=== PATIENT | male | born 1955 | race Two or more races ===

== ENCOUNTER → 2018-01-27 | Outpatient (CLI) | payer MEDICARE ==
[~2018-01-27] MED LIST: ADJUSTABLE COMM1 MIS; AMOX875T71 PO; ASPI325T33 PO; HYDR-3516 PO; LISI10TA3 PO; LORT5TAB PO; MULT-65 PO; SELE200T17 PO; TAMS0.4C4; TRAM50 PO; WALKER WHEELS/F1 MIS
[2018-01-27 09:03] LABS: BILIRUBIN, URINE NEG (NEG); BLOOD, URINE NEG (NEG); GLUCOSE,URINE NEG (NEG); KETONE, URINE NEG (NEG); NITRITE,URINE NEG (NEG); PH, URINE 5.5 (5.0-8.5); URINE COLOR YELLOW (YELLW/STRAW); URINE LEUKOCYTE ESTERASE NEG (NEG)
[2018-01-27 09:05] LABS: BASOPHIL % 0.4 % (0.0-2.0); EOSINOPHIL # 0.3 TH/MM3 (0-0.4); EOSINOPHIL % 3.6 % (0.0-4.0); HEMATOCRIT 44.1 % (39.0-51.0); HEMOGLOBIN 15.6 GM/DL (13.0-17.0); LYMPHOCYTE # 2.5 TH/MM3 (1.0-4.8); MEAN CELL VOLUME 85.6 FL (80.0-100.0); MEAN CORPUSCULAR HEMOGLOBIN 30.3 PG (27.0-34.0); MEAN CORPUSCULAR HGB CONC 35.3 % (32.0-36.0); MEAN PLATELET VOLUME 9.5 FL (7.0-11.0); MONO % 8.2 % (0.0-8.0); MONOCYTE # 0.6 TH/MM3 (0-0.9); NEUT % 53.8 % (16.0-70.0); PLATELET COUNT 214 TH/MM3 (150-450); RED BLOOD COUNT 5.15 MIL/MM3 (4.50-5.90); RED CELL DISTRIBUTION WIDTH 13.1 % (11.6-17.2); WHITE BLOOD COUNT 7.4 TH/MM3 (4.0-11.0)
[2018-01-27 09:10] LABS: MUCUS URINE FEW /lpf (OCC)
[2018-01-27 09:22] LABS: ALBUMIN 4.2 GM/DL (3.4-5.0); BICARBONATE 27.5 MEQ/L (21.0-32.0); BLOOD UREA NITROGEN 29 MG/DL (7-18); CALCIUM 9.2 MG/DL (8.5-10.1); CHLORIDE 107 MEQ/L (98-107); CREATININE 1.08 MG/DL (0.60-1.30); GLOMERULAR FILTRATION RATE 70 ML/MIN (>89); GLUCOSE,FASTING 117 MG/DL (74-99); SODIUM (NA) 142 MEQ/L (136-145)
[2018-01-27 09:24] LABS: ALT (GPT) 16 U/L (12-78); AST (GOT) 18 U/L (15-37)
[2018-01-27 09:26] LABS: ALKALINE PHOSPHATASE 126 U/L (45-117); TOTAL BILIRUBIN ADULT 0.5 MG/DL (0.2-1.0); TOTAL PROTEIN 7.3 GM/DL (6.4-8.2)
--- NOTE | 2018-01-27 10:01 | RADRPT ---
EXAM DATE/TIME: 01/27/2018 08:50 [facility] COMPARISON: No previous studies available for comparison. INDICATIONS : Evaluate for communicable diseases, pneumothorax, pneumonia. MEDICAL HISTORY : Osteoarthritis. SURGICAL HISTORY : None. ENCOUNTER: Initial ACUITY: 1 day PAIN SCORE: 0/10 LOCATION: Bilateral chest FINDINGS: PA and lateral views of the chest demonstrate the lungs to be symmetrically aerated without evidence of mass, infiltrate or effusion. Granuloma laterally right and left lungs. The cardiomediastinal con tours are unremarkable. Osseous structures are intact. CONCLUSION: Negative for an acute process. Jose Gunter MD FACR on January 27, 2018 at 9:58 Board Certified Radiologist. This report was verified electronically.
--- NOTE | 2018-01-27 21:39 | EKG ---
Date Performed: 01/27/2018 Time Performed: 08:13:17 PTAGE: 62 years EKG: SINUS BRADYCARDIA NONSPECIFIC T-WAVE ABNORMALITY BORDERLINE ECG Since the PREVIOUS TRACING , no significant change noted PREVIOUS TRACIN12/23/2010 09.24 DOCTOR: Nehal Acosta Interpretating Date/Time 01/27/2018 16:57:00
== END ==
LOC: CPRE 06:48
PROVIDERS: ATTEND Orthopaedic Surgery
DX: Z01.810 Encounter for preprocedural cardiovascular examination (principal); Z01.811 Encounter for preprocedural respiratory examination; Z01.812 Encounter for preprocedural laboratory examination; M16.12 Unilateral primary osteoarthritis, left hip; R94.31 Abnormal electrocardiogram [ECG] [EKG]
CPT/HCPCS: 36415; 71046; 80053; 81001; 85025; 93005

== ENCOUNTER 2018-02-01 05:16 | Inpatient (IN) | payer MEDICARE, OTHER ==
[~2018-02-01] VITALS: Ht 167.6 cm; Wt 80.0 kg
[~2018-02-01 05:16] MED LIST changes: -ADJUSTABLE COMM1 MIS; -AMOX875T71 PO; -ASPI325T33 PO; -HYDR-3516 PO; -LORT5TAB PO; -TRAM50 PO; -WALKER WHEELS/F1 MIS
[2018-02-01] MEDS ORDERED: VANCOMYCIN 1250 MG/NS 250 ML (for 70-84 kg) IV SCH ×2 (06:00)
[2018-02-01] MEDS ORDERED: CHLORHEXIDINE GLUCONATE 2 % 1 PACK (2 CLOTHS) TOPICAL PRN (06:00)
[2018-02-01] MEDS ORDERED: METOPROLOL TARTRATE 25 MG TAB PO PRN (06:00)
[2018-02-01] MEDS ORDERED: LACTATED RINGER'S 1000 ML IV PRN (06:00)
[2018-02-01] MEDS ORDERED: POVIDONE IODINE 5% (ANTISEPSIS KIT) 4 APPLICATIONS EACH NARE PRN (06:00)
[2018-02-01] MEDS ORDERED: SODIUM CHLORID 0.9% 500 ML IV PRN (06:00)
[2018-02-01] MEDS ORDERED: ceFAZolin 2 GM PREMIX 50 ML IV SCH ×2 (06:00→14:00)
[2018-02-01] MEDS ORDERED: ACETAMINOPHEN 1000 MG/100 ML 100 ML IV ONE (06:02)
[2018-02-01] MEDS ORDERED: GENTAMICIN SULFATE 80 MG/2 ML VIAL ONE (06:20)
--- NOTE | 2018-02-01 06:34 | MH ---
cc: Corbin Sheth MD DATE OF ADMISSION: 02/01/2018 PREOPERATIVE DIAGNOSIS: Severe osteoarthritis, left hip. PROPOSED SURGERY: Total hip replacement arthroplasty, left hip. HISTORY OF PRESENT ILLNESS: This patient has a problem for more than 2 years with the left hip with pain on and off, but now it is constant, severe and unable to walk without assistive device and is starting to have shortening of the left leg. He was referred to the [facility] for the surgery of total hip replacement. He has been treated with NSAIDs. He has 2 cortisone injections in the hip ordered by primary care. They gave him a few months of relief and now nothing is helping his pain. PERSONAL SOCIAL HISTORY: He is a nonsmoker and does not drink. 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 PAST MEDICAL HISTORY: High blood pressure and prostate problems. PAST SURGICAL HISTORY: Neck fusion and left foot. CURRENT MEDICATIONS: 1. Lisinopril. 2. Tamsulosin. ALLERGIES: NONE. PHYSICAL EXAMINATION: Reveals a male, 5 feet 6 inches tall, 175 pounds. He is walking with a profound limp on the left leg. He has severe pain on any range of motion of the left hip. He has some flexion contracture about 15-20 degrees. He can flex further to 90 degrees. He has about 1 cm shortening of the left lower extremity. Pedal pulses are palpable. The knee moves left foot well. GENERAL: Unremarkable. HEENT: Head is normocephalic. Pupils reactive to light. Face Symmetrical. HEART: Regular rhythm, no murmurs. LUNGS: Clear to auscultation. ABDOMEN: Soft and supple. IMAGING: X-rays revealed some destruction of the femoral head and some loss of bone superior portion of the acetabulum. There is End-stage osteoarthritis of the left hip. CT scan reveals that there is satisfactory bony confines for putting primary hip replacement components. The patient came in asking for an anterior hip replacement, but I had a long talk with him about the pros and cons of anterior hip replacement versus standard lateral approach or posterior hip replacement and the pros and cons and advantages and disadvantages. Because of the bone loss in the acetabulum and the need to properly deepen it and set the cup, I feel it is best that we do a posterior approach which is more conducive to dealing with any particular problems or complications. He has agreed to the procedure. Informed consent has been obtained. No guarantees made. A detailed informed consent has been documented on the office chart. We talked to him about infection, dislocation, fracture, limb length discrepancy, thromboembolic complications and post-hospital and postop care, etc. MD MARIANA Delong/EDWARD , 06:19 AM , 06:32 AM
[2018-02-01] MEDS ORDERED: BUPIVACAINE LIPOSO PF 1.3% INJ 20 ML in SODIUM CHLORIDE 0.9% INJ 60 ML P-ARTICULR SCH (07:30)
[2018-02-01] MEDS ORDERED: TRANEXAMIC ACID IV SCH ×2 (07:30→10:30)
[2018-02-01] MEDS ORDERED: SODIUM CHLORIDE 0.9% IV SCH ×2 (07:30→10:30)
[2018-02-01] MEDS ORDERED: ONDANSETRON HCL 4 MG/2 ML VIAL IVP PRN (10:30)
[2018-02-01] MEDS ORDERED: diphenhydrAMINE HCL 50 MG/ML VIAL IV PUSH PRN (10:30)
[2018-02-01] MEDS ORDERED: TEMAZEPAM 15 MG CAP PO PRN (10:30)
[2018-02-01] MEDS ORDERED: NALOXONE HCL 0.4 MG/ML AMP IV PUSH PRN (10:30)
[2018-02-01] MEDS ORDERED: TRANEXAMIC ACID INJ 0 MG in SODIUM CHLORIDE 0.9% INJ 100 ML IV SCH (10:30)
[2018-02-01] MEDS ORDERED: MORPHINE SULFATE 30 MG/30 ML PCA IV SCH (10:30)
[2018-02-01] MEDS ORDERED: Post-op Orders (for Pharmacy) XX ONE (10:30)
[2018-02-01] MEDS ORDERED: ASPI325T33 PO (10:31)
[2018-02-01] MEDS ORDERED: TRAM50 PO (10:31)
[2018-02-01] MEDS ORDERED: HYDR-3516 PO (10:31)
--- NOTE | 2018-02-01 10:34 | HHI.FF ---
Face to Face Verification Diagnosis: (1) S/P total hip arthroplasty Physical Therapy Gait training, Transfer training, bed to chair Hip: Total hip, Protocol: Left Right LE Weight Bearing: WB as tolerated Left LE Weight Bearing: WB as tolerated Nursing Nursing: Other (MONITOR DRESSING) Dressing Changes: Other (rEMOVE provena wed 02/08, apply primapore, change as needed) I have seen patient Tong Patterson on 02/01/18. My clinical findings support the need for the requested home health care services because: Limited ability to care for self I certify that my clinical findings support that this patient is homebound because: Unable to use public transportation Corbin Sheth MD February 01, 2018 10:34
[2018-02-01] MEDS ORDERED: MIDAZOLAM HCL 2 MG/2 ML VIAL ONE (10:35)
[2018-02-01] MEDS ORDERED: WALKER WHEELS/F1 MIS (10:36)
[2018-02-01] MEDS ORDERED: MORPHINE SULFATE 4 MG/ML INJ ONE (10:36)
[2018-02-01] MEDS ORDERED: ADJUSTABLE COMM1 MIS (10:36)
[2018-02-01] MEDS ORDERED: *morphine SULFATE 8 MG/ML PERIprocedure ONLY ONE (10:43)
--- NOTE | 2018-02-01 10:43 | MP ---
cc: Corbin Sheth MD DATE OF OPERATION: 02/01/2018 DATE OF : 1955 DATE OF SURGERY: 02/01/2018 PREOPERATIVE DIAGNOSES: 1. End-stage osteoarthritis, left hip. 2. Superior subluxation left femoral head. POSTOPERATIVE DIAGNOSES: 1. End-stage osteoarthritis, left hip. 2. Superior subluxation left femoral head. OPERATIVE PROCEDURE: Total hip replacement arthroplasty, left hip using a Suzanna Biomet components. COMPONENTS: Stem: 14 mm Taperloc with a lateral offset. Head: 36 mm ceramic with standard neck length. Cup: A 56 mm Suzanna cup with 2 dome screws. Polyethylene 36 mm high wall liner. LEVEL OF DIFFICULTY: Moderate because of the subluxation of the femoral head and bone loss from the superior lateral aspect of the acetabulum, bone cysts in the acetabulum as well as tight exposure because of the patient's athletic status. SURGEON: Dr. Sheth. ANESTHESIA: General. PROCEDURE: After induction of general anesthesia, the patient was placed in the left lateral position, supported with Biomet hip positioners. Strict lateral position was ascertained. Axillary roll was placed. The well leg and upper extremities were properly protected and positioned. The left hip and left lower extremity were thoroughly prepped with alcohol and ChloraPrep and draped in routine fashion. A lateral incision about 6 inches long was made, centered on the greater trochanter, deepened through subcutaneous tissue and fascia. The patient had a fairly large gluteus medius in close proximity and adherent to the fascia, making dissection, a little bit difficult, but gluteus medius was protected throughout. The bursa was dissected, self-retaining retractors introduced. The hip was internally rotated, followed by identification of the piriformis and stay sutures were placed through the piriformis and capsule and the capsule was incised and inverted in L-shaped fashion with the vertical limb of the L along the intertrochanteric line. The gluteus minimus was dissected from the superior lateral aspect of the acetabulum and a Steinmann pin placed here for measurement of length and offset through a predetermined mikhail on the greater trochanter. Once this was done, the hip was dislocated. Time had to be taken to osteotomize the femoral neck because of the tight confines as well as the large femoral head and a short neck. A femoral neck osteotomy was carried out. Head was removed. There was considerable degree of soft tissue excision which had to be carried out from the acetabular labrum and some of the anterior and inferior capsule and the posterior labrum to get good exposure. Once exposure was obtained, the confines of the acetabulum were checked, the thickness of the inner wall was checked, followed by reaming with a 50 mm reamer to start with, deepening the acetabulum as well as bleeding bone superiorly. The superior and inferior confines certainly are larger then anterior to posterior dimensions and a middle row was established and a last reamer used was a 56 mm, which was grabbed very well by the anterior and posterior vitale. Bone graft from femoral head was packed into the curetted cysts in the acetabulum. Trial was used, followed by a 56 mm Suzanna cup impacted in 45 degrees of abduction, 20 degrees anteversion. A 30 mm and 25 mm screws were used for securing the cup additionally. A high wall polyethylene liner impacted in place with the buildup superior - posterior. Femur was prepared following routine technique using a ComplyMD cutter lateralizer and use of the Taperloc broaches to 14 mm broach. Trial reduction was carried out with a -3 head and stability was good, but we need to regain some length because we were only lengthening him 1 mm but we were losing about 8 mm of offset. Therefore, we decided that we would use a longer neck length and a lateral offset. Trial implants were removed, followed by impaction of a 14 mm Taperloc stem in 20 degrees of anteversion with the lateral offset stem. A standard 36 mm ceramic head was placed over it and final reduction was carried out, getting good position, alignment and stability. Limb lengths appeared satisfactory. We had lost some offset, but we regained some length. We lengthened him about 5 mm and lost about 5 mm of offset. The wound was irrigated with saline solution, followed by reapproximation of short external rotators and capsule in as anatomical situation as possible, getting good repair with #2 FiberWire through drill holes to the greater trochanter. Slurried bone graft from femoral head and reamings packed under soft tissue over the bare area of the cup superior laterally.The superior incision of the capsule was also repaired. The gluteus minimus was reattached to the soft tissue structures of the short rotators. The fascia was closed with #2 Vicryl and #2 Quill, subcutaneous tissue with 2-0 Vicryl and the skin with 3-0 subcuticular sutures followed by application of a Prevena vacuum suction dressing. The patient was transferred to the recovery room in satisfactory condition with abduction pillow on. The patient tolerated the procedure well. TRANSFUSIONS AND COMPLICATIONS: None. POSTOPERATIVE CONDITION: Satisfactory. PROGNOSIS: Good. ESTIMATED BLOOD LOSS: 400 mL. MD MARIANA Delong/AGUSTIN , 10:16 AM , 10:42 AM DERIK
[2018-02-01] MEDS: SODIUM CHLOR 0.9% 1000 ML INJ 1,000 ML IV SCH ×2 (11:00→20:00)
--- NOTE | 2018-02-01 11:35 | RADRPT ---
EXAM DATE/TIME: 02/01/2018 10:55 [facility] COMPARISON: No previous studies available for comparison. INDICATIONS : Post op left hip surgery. MEDICAL HISTORY : Osteoarthritis. SURGICAL HISTORY : None. ENCOUNTER: Initial ACUITY: 1 day PAIN SCORE: Non-responsive. LOCATION: Left hip. FINDINGS: AP and lateral views demonstrates a total hip arthroplasty in place. Arthroplasty components are well positioned and in anatomic alignment. No significant bony fracture. CONCLUSION: 1. Status post left hip arthroplasty, as above. Jeancarlos Ramsey MD on February 01, 2018 at 11:32 Board Certified Radiologist. This report was verified electronically.
[2018-02-01] MEDS ORDERED: ONDANSETRON HCL 4 MG/2 ML VIAL IV PUSH ONE (12:00)
[2018-02-01] MEDS ORDERED: ePHEDrine/NS 25 MG/5 ML SYRINGE IV ONE (12:00)
[2018-02-01] MEDS ORDERED: NEOSTIGMINE 5 MG/5 ML SYRINGE IV PUSH ONE (12:00)
[2018-02-01] MEDS ORDERED: ONDANSETRON HCL 4 MG/2 ML VIAL IV ONE (12:00)
[2018-02-01] MEDS ORDERED: GLYCOPYRROLATE 1 MG/5 ML SYRINGE IV PUSH ONE (12:00)
[2018-02-01] MEDS ORDERED: PROPOFOL 200 MG/20 ML AMP IV ONE (12:00)
[2018-02-01] MEDS ORDERED: ROCURONIUM INJ 50 MG/5 ML SYRINGE IV PUSH ONE (12:00)
[2018-02-01] MEDS ORDERED: LIDOCAINE HCL 1% PF 5 ML SYRINGE OTHER ONE (12:00)
[2018-02-01] MEDS ORDERED: DEXAMETHASONE SOD PHOS 4 MG/ML VIAL IV ONE (12:00)
[2018-02-01] MEDS ORDERED: SODIUM CHLORIDE 0.9% 20 ML VIAL IV ONE (12:00)
[2018-02-01] MEDS ORDERED: PHENYLEPH/NS 1000 MCG/10 ML SYR IV ONE (12:00)
[2018-02-01] MEDS ORDERED: DO NOT ADM ANY ANTICOAGULANT DRUGS PRN (12:45)
[2018-02-01] MEDS: ACETAMINOPHEN 1000 MG/100 ML VIAL IV SCH ×2 (12:55→20:21)
[2018-02-01] MEDS ORDERED: ceFAZolin 2 GM PREMIX 50 ML ONE (13:21)
[2018-02-01] MEDS: PCA - TOTAL MG MORPHINE DELIVERED PER SHIFT SCH ×2 (14:00→22:00)
[2018-02-01] MEDS: ceFAZolin 2 GM in NS 100 ML IV SCH ×2 (14:00→22:08)
[2018-02-01 16:36] VITALS: BP 137/68; PULSE 62; RESP 18; TEMP 97.6; O2SAT 98
[2018-02-01] MEDS: ACETAMINOPHEN/HYDROcodone 325 MG/5 MG TAB PO PRN ×2 (18:22→23:43)
[2018-02-01 20:00] VITALS: BP 131/64; PULSE 62; RESP 21; TEMP 97.9; O2SAT 97
[2018-02-01] MEDS: TAMSULOSIN HCL 0.4 MG CAP PO SCH ×2 (20:20→23:42)
[2018-02-01] MEDS: KETOROLAC TROMETHAMINE 30 MG/ML (IVP) VIAL IVP SCH (20:22)
[2018-02-01] MEDS ORDERED: VANCOMYCIN INJ 1,250 MG in SODIUM CHLOR 0.9% 250 ML INJ 250 ML IV SCH (23:00)
[2018-02-01] MEDS ORDERED: VANCOMYCIN INJ 1.25 GM in SODIUM CHLOR 0.9% 250 ML INJ 250 ML IV SCH (23:00)
[2018-02-02] VITALS: BP 151/71; PULSE 60; RESP 12; TEMP 98.1; O2SAT 100
[2018-02-02] MEDS: TAMSULOSIN HCL 0.4 MG CAP PO SCH ×2 (01:17→20:59)
[2018-02-02] MEDS: ceFAZolin 2 GM in NS 100 ML IV SCH (02:37)
[2018-02-02 04:00] VITALS: BP 121/57; PULSE 60; RESP 19; TEMP 97.1; O2SAT 98
[2018-02-02] MEDS: SODIUM CHLOR 0.9% 1000 ML INJ 1,000 ML IV SCH ×3 (04:00→20:00)
[2018-02-02 05:12] LABS: HEMATOCRIT 34.1 % (39.0-51.0); HEMOGLOBIN 11.7 GM/DL (13.0-17.0)
[2018-02-02] MEDS: KETOROLAC TROMETHAMINE 30 MG/ML (IVP) VIAL IVP SCH ×3 (05:22→20:59)
[2018-02-02 05:36] LABS: BICARBONATE 26.3 MEQ/L (21.0-32.0); CALCIUM 7.8 MG/DL (8.5-10.1); CREATININE 1.23 MG/DL (0.60-1.30)
[2018-02-02] MEDS: PCA - TOTAL MG MORPHINE DELIVERED PER SHIFT SCH (05:46)
--- NOTE | 2018-02-02 07:36 | PD.ORT.PN ---
Subjective Post Op Day #: 1 Pain Scale: not much Subjective Remarks Doing well Distance Walked OOB and BRP already yesterday Objective Vitals Last 72 hours Impressions Hip X-Ray 02/01/18 0000 Signed Impressions: Service Date/Time: Thursday, February 01, 2018 10:55 - CONCLUSION: 1. Status post left hip arthroplasty, as above. Jeancarlos Ramsey MD Vital Signs Date Time Temp Pulse Resp B/P (MAP) Pulse Ox O2 Delivery O2 Flow Rate FiO2 02/02/18 04:00 97.1 60 19 121/57 (78) 98 02/02/18 00:00 98.1 60 12 151/71 (97) 100 02/01/18 20:00 97.9 62 21 131/64 (86) 97 02/01/18 16:36 97.6 62 18 137/68 (91) 98 02/01/18 16:15 71 16 98 Nasal Cannula 2 02/01/18 16:00 97.6 70 16 123/60 (81) 98 Nasal Cannula 2 02/01/18 15:00 71 16 125/63 (83) 98 Nasal Cannula 2 02/01/18 14:51 16 02/01/18 14:00 70 16 128/65 (86) 97 Nasal Cannula 2 02/01/18 13:21 15 02/01/18 13:16 15 02/01/18 13:00 69 16 130/68 (88) 97 Nasal Cannula 2 02/01/18 12:00 64 16 138/70 (92) 97 Nasal Cannula 2 02/01/18 11:45 65 16 132/71 (91) 96 Nasal Cannula 2 02/01/18 11:30 97.6 68 15 135/69 (91) 95 Nasal Cannula 2 02/01/18 11:15 65 15 130/67 (88) 94 Nasal Cannula 2 02/01/18 11:00 67 15 128/69 (88) 95 Nasal Cannula 2 02/01/18 10:48 16 02/01/18 10:45 66 15 127/68 (87) 95 Nasal Cannula 2 02/01/18 10:30 69 15 128/66 (86) 95 Nasal Cannula 2 02/01/18 10:25 97.3 67 16 123/68 (86) 100 Nasal Cannula 3 I/O 5/9/02/01/18 02/01/18 02/02/18 02/02/18 02/02/18 07:00 15:00 23:00 07:00 15:00 23:00 Intake Total 2007.96 ml 990 ml 2109.5 ml Output Total 4250 ml 200 ml Balance -2242.04 ml 990 ml 1909.5 ml Intake Oral 240 ml 1000 ml IV Total 2007.96 ml 750 ml 1109.5 ml Output Urine Total 850 ml 200 ml Estimated Blood Loss 400 ml Other 3000 ml Bladder Scan Volume Amount 548 ml # Voids 0 Result Diagram: 02/02/18 0349 02/02/18348 Objective Remarks A,A, and O Comfortable Moves toes well Dressings ( Provena) intact and working, discussed with patient Has had trouble voiding but adamantly refuses catheter, according to head nurse , inspite of 700 residual. i Disscussed, and he is confident he can do without catheter, indeed has approx 300 ml in urinal now. Assessment & Plan Ortho Post Op Day #: 1 Problem List: Assessment and Plan DC plan discussed Corbin Sheth MD February 02, 2018 07:36
[2018-02-02] MEDS: ACETAMINOPHEN/HYDROcodone 325 MG/5 MG TAB PO PRN ×2 (07:54→17:40)
[2018-02-02] MEDS: LISINOPRIL 10 MG TAB PO SCH (07:54)
[2018-02-02] MEDS: MULTIVITAMIN TAB PO SCH (07:54)
[2018-02-02] MEDS: ASPIRIN EC 325 MG TABEC PO SCH (07:54)
[2018-02-02 08:00] VITALS: BP 136/70; PULSE 67; RESP 18; TEMP 97.6; O2SAT 98
[2018-02-02] MEDS: ACETAMINOPHEN 1000 MG/100 ML VIAL IV SCH ×2 (08:59→20:59)
[2018-02-02 12:00] VITALS: BP 140/75; PULSE 66; RESP 18; TEMP 98; O2SAT 99
[2018-02-02 16:00] VITALS: BP 130/65; PULSE 59; RESP 18; TEMP 97.8; O2SAT 99
[2018-02-02 20:00] VITALS: BP 160/78; PULSE 65; RESP 20; TEMP 97.9; O2SAT 98
[2018-02-02] MEDS: DOCUSATE SODIUM 100 MG CAP PO SCH (20:59)
[2018-02-02] MEDS: traMADol HCL 50 MG TAB PO PRN (20:59)
[2018-02-03 00:02] VITALS: BP 128/58; PULSE 61; RESP 18; TEMP 97.7; O2SAT 98
[2018-02-03] MEDS: SODIUM CHLOR 0.9% 1000 ML INJ 1,000 ML IV SCH ×3 (04:00→20:00)
[2018-02-03] MEDS: KETOROLAC TROMETHAMINE 30 MG/ML (IVP) VIAL IVP SCH ×2 (06:22→12:50)
[2018-02-03] MEDS: ACETAMINOPHEN/HYDROcodone 325 MG/5 MG TAB PO PRN ×3 (06:23→19:19)
[2018-02-03] MEDS: TAMSULOSIN HCL 0.4 MG CAP PO SCH ×2 (07:41→20:49)
[2018-02-03] MEDS: MULTIVITAMIN TAB PO SCH (07:41)
[2018-02-03] MEDS: LISINOPRIL 10 MG TAB PO SCH (07:41)
[2018-02-03] MEDS: ASPIRIN EC 325 MG TABEC PO SCH ×2 (07:41→20:49)
[2018-02-03] MEDS: traMADol HCL 50 MG TAB PO PRN ×2 (07:42→20:49)
[2018-02-03] MEDS: DOCUSATE SODIUM 100 MG CAP PO SCH ×2 (07:42→20:49)
[2018-02-03] MEDS: ACETAMINOPHEN 1000 MG/100 ML VIAL IV SCH ×2 (07:48→20:49)
[2018-02-03 08:00] VITALS: BP 158/85; PULSE 66; RESP 15; TEMP 97.2; O2SAT 97
[2018-02-03] MEDS ORDERED: LACTULOSE SYRUP 20 GM/30 ML CUP PO PRN (10:30)
[2018-02-03] MEDS ORDERED: MAGNESIUM HYDROXIDE SUSP 30 ML CUP PO PRN ×2 (10:30→11:15)
--- NOTE | 2018-02-03 11:12 | PD.ORT.PN ---
Subjective Post Op Day #: 2 Subjective Remarks Doing well, would like to snf, no help at home, ,lives alone Objective Vitals Vital Signs Date Time Temp Pulse Resp B/P (MAP) Pulse Ox O2 Delivery O2 Flow Rate FiO2 02/03/18 08:47 18 02/03/18 08:47 18 02/03/18 08:00 97.2 66 15 158/85 (109) 97 02/03/18 07:23 18 02/03/18 07:23 18 02/03/18 00:02 97.7 61 18 128/58 (81) 98 02/02/18 20:00 97.9 65 20 160/78 (105) 98 02/02/18 16:00 97.8 59 18 130/65 (86) 99 02/02/18 12:00 98.0 66 18 140/75 (96) 99 I/O 02/02/18 02/02/18 02/02/18 02/03/18 02/03/18 02/03/18 07:00 15:00 23:00 07:00 15:00 23:00 Intake Total 2109.5 ml 600 ml 1700 ml 600 ml Output Total 200 ml 700 ml 600 ml 450 ml Balance 1909.5 ml -100 ml 1100 ml 150 ml Intake Oral 1000 ml 600 ml 1700 ml 600 ml IV Total 1109.5 ml Output Urine Total 200 ml 700 ml 600 ml 450 ml Bladder Scan Volume Amount 548 ml # Voids 5 2 # Bowel Movements 0 Result Diagram: 02/02/18 0349 02/02/18 0349 Objective Remarks sleeping, butA,A, and O on waking Comfortable Moves toes well Dressings ( Provena) intact and working, discussed with patient Assessment & Plan Ortho Post Op Day #: 2 Problem List: Assessment and Plan DC plan discussed To SNF tomorrow Corbin Sheth MD February 03, 2018 11:12
[2018-02-03 12:00] VITALS: BP 125/66; PULSE 67; RESP 16; TEMP 97.7; O2SAT 97
[2018-02-03 16:00] VITALS: BP 125/63; PULSE 65; RESP 16; TEMP 97.9; O2SAT 98
[2018-02-03 20:00] VITALS: BP 132/61; PULSE 71; RESP 18; TEMP 98.3; O2SAT 99
[2018-02-04 00:01] VITALS: BP 128/76; PULSE 69; RESP 18; TEMP 97.9; O2SAT 99
[2018-02-04] MEDS: SODIUM CHLOR 0.9% 1000 ML INJ 1,000 ML IV SCH (04:00)
[2018-02-04] MEDS: ACETAMINOPHEN/HYDROcodone 325 MG/5 MG TAB PO PRN ×2 (04:54→11:17)
[2018-02-04 08:00] VITALS: BP 144/76; PULSE 69; RESP 18; TEMP 97.6; O2SAT 99
[2018-02-04] MEDS: TAMSULOSIN HCL 0.4 MG CAP PO SCH (10:13)
[2018-02-04] MEDS: DOCUSATE SODIUM 100 MG CAP PO SCH (10:13)
[2018-02-04] MEDS: LISINOPRIL 10 MG TAB PO SCH (10:13)
[2018-02-04] MEDS: ASPIRIN EC 325 MG TABEC PO SCH (10:13)
[2018-02-04] MEDS: MULTIVITAMIN TAB PO SCH (10:13)
--- NOTE | 2018-02-04 10:36 | PD.ORT.PN ---
Subjective Post Op Day #: 3 Pain Scale: ok Subjective Remarks Doing well, would like to snf, no help at home, ,lives alone, was up before, awaiting PT Objective Vitals Vital Signs Date Time Temp Pulse Resp B/P (MAP) Pulse Ox O2 Delivery O2 Flow Rate FiO2 02/04/18 08:00 97.6 69 18 144/76 (98) 99 02/04/18 00:01 97.9 69 18 128/76 (93) 99 02/03/18 20:00 98.3 71 18 132/61 (84) 99 02/03/18 16:00 97.9 65 16 125/63 (83) 98 02/03/18 13:57 18 02/03/18 12:53 18 02/03/18 12:00 97.7 67 16 125/66 (85) 97 I/O 02/03/18 02/03/18 02/03/18 02/04/18 02/04/18 02/04/18 07:00 15:00 23:00 07:00 15:00 23:00 Intake Total 600 ml 480 ml 460 ml Output Total 450 ml 350 ml Balance 150 ml 480 ml 110 ml Intake Oral 600 ml 480 ml 460 ml Output Urine Total 450 ml 350 ml # Voids 2 4 1 # Bowel Movements 0 1 Result Diagram: 02/02/18 0349 02/02/18 0349 Objective Remarks In bed, A,A, and O Left hip has provena dressing, no significant swelling/ ecchhymosis Moves toes well advised importance of Being OOB and ambulatory, not in bed all the time DC meds discussed Assessment & Plan Ortho Post Op Day #: 3 Problem List: Assessment and Plan DC to SNF today See me tuesdayFebruary 13 Corbin Sheth MD February 04, 2018 10:36
--- NOTE | 2018-02-04 22:16 | MD ---
cc: Corbin Sheth MD, Srinivasa MD DATE OF DISCHARGE: 02/04/2018 ADMITTING DIAGNOSIS: End-stage osteoarthritis of the left hip. DISCHARGE DIAGNOSIS: End-stage osteoarthritis of the left hip. ADDITIONAL DIAGNOSIS: 1. Benign prostatic hypertrophy. 2. Hypertension. HISTORY OF PRESENT ILLNESS: Consists of 2-year history of increasing pain in the left hip, treated nonoperatively including NSAIDs and intra-articular steroids. It has come to the point where he has further worsening of the x-rays, there is shortening and deformity and the inability to walk without a severe limp. After a preoperative workup, the patient was brought to the hospital where he had the surgery performed uneventfully. Postop course uneventful. He has a Provena dressing on his hip, which will stay on until Tuesday. Postoperative labs were satisfactory. Postoperative x-ray satisfactory. The patient has had physical therapy and occupational therapy. Dislocation precautions have been advised. He elected to go to a senior living facility instead of home health care because of lack of availability of any help at home. DISCHARGE MEDICATIONS: Basically continue at home medications preop as well as hydrocodone 5/325 2 q.i.d. p.r.n. for pain pain level 7-10 and Tramadol 100 mg t.i.d. p.r.n. for pain for pain level 1-6. Appropriate orders for care and followup have been written. MD MARIANA Delong/ , 10:38 AM , 10:15 PM
== END 2018-02-04 12:39 | DRG 470 ==
LOC: HSDI 05:16 → N06A 16:34
PROVIDERS: ADMIT Orthopaedic Surgery; ATTEND Orthopaedic Surgery
PROC: 0QU707Z Supplement Left Upper Femur with Autologous Tissue Substitute, Open Approach (ICD-10-PCS; 2018-02-01)
PROC: 0SRB04A Replacement of Left Hip Joint with Ceramic on Polyethylene Synthetic Substitute, Uncemented, Open Approach (ICD-10-PCS; principal; 2018-02-01 07:08)
DX: M16.12 Unilateral primary osteoarthritis, left hip (principal); S73.002A Unspecified subluxation of left hip, initial encounter; I10 Essential (primary) hypertension; N40.0 Benign prostatic hyperplasia without lower urinary tract symptoms
CPT/HCPCS: 73502; 80048; 85014; 85018; 86850; 86900; 86901; 94150; C1776; C9290; J0131; J0690; J1100; J1580; J1885; J2250; J2270; J2370; J2405; J2710; J3010; J3370; J7030; J7050; J7120